=== PATIENT | male | born 1965 ===

== ENCOUNTER 2021-01-24 11:22 | Outpatient (CLI) | payer BC, SELFPAY ==
[2021-01-24 13:04] LABS: Abs Immature Grans 0.01 10^3/uL (0.0-0.06); Absolute Basophil Count 0.04 10^3/uL (0.0-0.2); Absolute Eosinophil Count 0.25 10^3/uL (0.0-0.7); Absolute Lymphocyte Count 2.87 10^3/uL (1.2-3.4); Absolute Monocyte Count 0.56 10^3/uL (0.1-0.8); Absolute Neutrophil Count 2.53 10^3/uL (1.2-6.7); Basophils % 0.6; HCT 40.9 % (40.0-50.0); HGB 12.2 g/dL (13.5-17.5); Immature Grans % 0.2; Lymphocytes % 45.8; MCH 21.8 pg (27.0-33.0); MCHC 29.8 % (32.0-36.0); MPV 9.4 fL (8.0-11.0); Monocytes % 8.9; Neutrophils % 40.5; Nucleated RBC 0 %; Platelet Count 331 10^3/uL (130-400); RDW 22.7 % (11.8-14.1); WBC 6.26 10^3/uL (4.4-10.8)
[2021-01-24 13:12] LABS: ALT 82 U/L (16-63); AST 34 U/L (15-37); Albumin 3.3 g/dL (3.4-5.0); Alkaline Phosphatase 136 U/L (46-116); Anion Gap 10.9 mmol/L (3-11); BUN 24 mg/dL (7-18); Bilirubin, Total 0.2 mg/dL (0.2-1.0); CO2 25.1 mmol/L (21.0-32.0); Calcium 9.7 mg/dL (8.5-10.1); Chloride 101 mmol/L (98-107); Glucose 109 mg/dL (74-106); Potassium 4.5 mmol/L (3.5-5.1); Sodium 137 mmol/L (136-145); Total Protein 8.5 g/dL (6.4-8.2)
[2021-01-24 13:27] LABS: Anisocytosis 3+; Diff Comment RBC Morph Reviewed
[2021-01-24 13:28] LABS: Hypochromasia 2+; Microcytosis 3+
[2021-01-24 13:29] LABS: Poikilocytes 2+
[2021-01-24 21:38] LABS: CEA <2.0 ng/mL (See Note)
[2021-01-31 08:32] LABS: DPYD Genotype See Comments; DPYD Phenotype Normal metabolizer
[2021-01-31 08:34] LABS: Interpretation See Comments
[2021-01-31 08:35] LABS: Method See Comments
[2021-01-31 08:47] LABS: Disclaimer See Comments
== END 2021-01-24 11:23 | disposition home or self-care (01) ==
LOC: LBO 01-27 11:23
PROVIDERS: Visit Provider Internal Medicine Hematology & Oncology
DX: C18.2 Malignant neoplasm of ascending colon (principal); C20 Malignant neoplasm of rectum
CPT/HCPCS: 36415; 80053; 81232; 82378; 85025

== ENCOUNTER 2021-02-21 09:42 | Outpatient (REF) | payer BC, SELFPAY ==
[2021-02-21 09:51] LABS: Abs Immature Grans 0.01 10^3/uL (0.0-0.06); Absolute Basophil Count 0.03 10^3/uL (0.0-0.2); Absolute Eosinophil Count 0.16 10^3/uL (0.0-0.7); Absolute Monocyte Count 0.73 10^3/uL (0.1-0.8); Absolute Neutrophil Count 2.15 10^3/uL (1.2-6.7); Basophils % 0.6; Eosinophils % 3.1; HCT 43.6 % (40.0-50.0); Immature Grans % 0.2; Lymphocytes % 39.4; MCH 21.9 pg (27.0-33.0); MCHC 29.8 % (32.0-36.0); MCV 73.4 fL (80-95); Monocytes % 14.4; Neutrophils % 42.3; Nucleated RBC 0 %; RBC 5.94 10^6/uL (4.36-5.78); RDW-SD 47.1 fL; WBC 5.08 10^3/uL (4.4-10.8)
[2021-02-21 10:02] LABS: ALT 28 U/L (16-63); AST 19 U/L (15-37); Albumin 3.6 g/dL (3.4-5.0); Alkaline Phosphatase 104 U/L (46-116); Anion Gap 10.1 mmol/L (3-11); BUN 14 mg/dL (7-18); Bilirubin, Total 0.4 mg/dL (0.2-1.0); CO2 22.9 mmol/L (21.0-32.0); CREATININE 0.9 mg/dL (0.70-1.30); Calcium 9.1 mg/dL (8.5-10.1); Chloride 100 mmol/L (98-107); Glucose 104 mg/dL (74-106); Potassium 4.6 mmol/L (3.5-5.1); Sodium 133 mmol/L (136-145)
[2021-02-21 10:11] LABS: Anisocytosis 1+; Diff Comment Diff Reviewed; Platelet Count 217 10^3/uL (130-400)
== END 2021-02-21 09:43 | disposition home or self-care (01) ==
LOC: LBN 09:42
PROVIDERS: Visit Provider Internal Medicine Hematology & Oncology
DX: C18.2 Malignant neoplasm of ascending colon (principal); C20 Malignant neoplasm of rectum
CPT/HCPCS: 80053; 82378; 85025

== ENCOUNTER 2021-03-14 02:03 | Outpatient (CLI) | payer BC, SELFPAY ==
[2021-03-14 09:07] LABS: Abs Immature Grans 0.02 10^3/uL (0.0-0.06); Absolute Basophil Count 0.04 10^3/uL (0.0-0.2); Absolute Eosinophil Count 0.13 10^3/uL (0.0-0.7); Absolute Lymphocyte Count 2.01 10^3/uL (1.2-3.4); Absolute Monocyte Count 0.96 10^3/uL (0.1-0.8); Absolute Neutrophil Count 3.48 10^3/uL (1.2-6.7); Basophils % 0.6; HCT 45.5 % (40.0-50.0); HGB 14.3 g/dL (13.5-17.5); Immature Grans % 0.3; Lymphocytes % 30.3; MCH 22.9 pg (27.0-33.0); MCHC 31.4 % (32.0-36.0); MCV 72.9 fL (80-95); MPV 8.6 fL (8.0-11.0); Monocytes % 14.5; Neutrophils % 52.3; Nucleated RBC 0 %; Platelet Count 207 10^3/uL (130-400); RBC 6.24 10^6/uL (4.36-5.78); RDW 20.2 % (11.8-14.1); WBC 6.64 10^3/uL (4.4-10.8)
[2021-03-14 09:24] LABS: ALT 25 U/L (16-63); AST 18 U/L (15-37); Albumin 3.9 g/dL (3.4-5.0); Alkaline Phosphatase 91 U/L (46-116); Anion Gap 2.6 mmol/L (3-11); BUN 22 mg/dL (7-18); Bilirubin, Total 0.5 mg/dL (0.2-1.0); CO2 39.4 mmol/L (21.0-32.0); CREATININE 1.4 mg/dL (0.70-1.30); Calcium 9.7 mg/dL (8.5-10.1); Chloride 89 mmol/L (98-107); Estimated GFR 52.81 (mL/min/1.73m2); Glucose 154 mg/dL (74-106); Sodium 131 mmol/L (136-145); Total Protein 8.3 g/dL (6.4-8.2)
[2021-03-14 09:29] LABS: Potassium 2.7 mmol/L (3.5-5.1)
[2021-03-14 22:12] LABS: CEA <2.0 ng/mL (See Note)
== END 2021-03-14 02:04 | disposition home or self-care (01) ==
LOC: LBO 02:03
PROVIDERS: Visit Provider Internal Medicine Hematology & Oncology
DX: C18.2 Malignant neoplasm of ascending colon (principal); C20 Malignant neoplasm of rectum
CPT/HCPCS: 36415; 80053; 82378; 85025

== ENCOUNTER 2021-04-04 01:20 | Outpatient (CLI) | payer BC, SELFPAY ==
[2021-04-04 09:03] LABS: Abs Immature Grans 0.01 10^3/uL (0.0-0.06); Absolute Basophil Count 0.05 10^3/uL (0.0-0.2); Absolute Eosinophil Count 0.25 10^3/uL (0.0-0.7); Absolute Lymphocyte Count 1.57 10^3/uL (1.2-3.4); Absolute Monocyte Count 0.81 10^3/uL (0.1-0.8); Absolute Neutrophil Count 2.49 10^3/uL (1.2-6.7); Eosinophils % 4.8; HCT 43.6 % (40.0-50.0); HGB 13.7 g/dL (13.5-17.5); Immature Grans % 0.2; Lymphocytes % 30.3; MCH 24.4 pg (27.0-33.0); MCHC 31.4 % (32.0-36.0); MCV 77.6 fL (80-95); MPV 8.8 fL (8.0-11.0); Monocytes % 15.6; Neutrophils % 48.1; Nucleated RBC 0 %; Platelet Count 195 10^3/uL (130-400); RBC 5.62 10^6/uL (4.36-5.78); RDW 25.4 % (11.8-14.1); RDW-SD 65.8 fL; WBC 5.18 10^3/uL (4.4-10.8)
[2021-04-04 09:22] LABS: Anisocytosis 2+; Diff Comment Diff Reviewed; Microcytosis 1+
[2021-04-04 09:23] LABS: ALT 50 U/L (16-63); AST 18 U/L (15-37); Alkaline Phosphatase 91 U/L (46-116); Anion Gap 8.7 mmol/L (3-11); BUN 20 mg/dL (7-18); Bilirubin, Total 0.9 mg/dL (0.2-1.0); CO2 34.3 mmol/L (21.0-32.0); CREATININE 1.2 mg/dL (0.70-1.30); Calcium 9.3 mg/dL (8.5-10.1); Chloride 93 mmol/L (98-107); Glucose 166 mg/dL (74-106); Sodium 136 mmol/L (136-145); Total Protein 7.9 g/dL (6.4-8.2)
[2021-04-04 09:30] LABS: Potassium 2.9 mmol/L (3.5-5.1)
[2021-04-04 17:54] LABS: CEA <2.0 ng/mL (See Note)
== END 2021-04-04 01:21 | disposition home or self-care (01) ==
LOC: LBO 01:21
PROVIDERS: Visit Provider Internal Medicine Hematology & Oncology
DX: C18.2 Malignant neoplasm of ascending colon (principal); C20 Malignant neoplasm of rectum
CPT/HCPCS: 36415; 80053; 82378; 85025

== ENCOUNTER 2021-04-11 09:33 | Outpatient (CLI) | payer BC, SELFPAY ==
--- OUTSIDE RECORDS SUMMARY | 2021-04-11 09:38 | XMS_ITS | Encounter Summary ---
:1965 Author Care Team Providers Name Role Phone Nikita Zimmerman Primary Care Provider [phone] Tressa Ramos MD Sales Merchandising Specialist [phone] James Chamberlain General Surgeon [phone] Reason for Visit hospital follow up Assessment and Plan 1. Hyponatremia Need to re-assess this - last sodium was 126. He was given a liter of NS after this. Blood pressure remains low, and pulse is high, raising possibility of ongoing dehydration. ? BMP, serum or plasma 2. Iron deficiency anemia Will have Richard check his bloo d in about two weeks. He's now had three iron infusions for a total of 0.9 gm. He will take an iron supplement for a couple of months, but the important thing is for him to get the bleeding stopped, and hopefully the colonoscopy/endoscopy shows only benign findings. Work note given - he'll return on 1. ? ferrous sulfate 325 mg (65 mg iron) tablet 3. Coronary arteriosclerosis [facility] 05/09/20. Cath showed diffu se disease. 80% prox diag with ELLA x 1 to diag 1. LCX distal 2 was 100% with collateralization. OM2 98% diffuse. LPL1- ostial 99%. RCA severe diffuse entire vessel. LVEF 39% by TTE. Follow-up echo showed an ejection fracti on of 55%. Perfusion scan was discordant with an ejection fraction of 39% identified. He has established with cardiology local ly. No symptoms attributable to this disease currently. 4. Familial multiple polyposis s yndrome Richard has had his colon remove d and now has an ostomy. Unfortunately, his condition had advanced and he will need to undergo chemotherapy and radiation therapy. Discussion Note: None recorded.Patient educational handouts: No information available. Plan of Care Reminders Provider Appointments Or 15 on or around James brooke 04/22/2021 MD [facility] ? Surgical 05/08/2021 Or Room 4 Procedure 60 12:00PM ? Surgical 05/08/2021 James Martin njamin Procedure 60 12:00PM MD [facility] ? Or 15 05/08/2021 James Pandey min 11:00AM MD [facility] ? Follow up 06/03/2021 Tressa raphael 20 8:20AM MD Richard ? Follow up 06/26/2021 Nikita Zimmerman, 20 10:00AM DO Lab BMP, Serum 01/17/2021 [facility] or [facility] Hospital Lab (Internal) Referral None ? ? recorded. Procedures None ? ? recorded. Surgeries None ? ? recorded. Imaging None ? ? recorded. Medications Name Start Date ? ? aspirin 81 mg tablet,delayed release 01/06/2021 1 tablet every day by oral route in the evening. atorvastatin 80 mg tablet 01/06/2021 1 tablet every day by oral route in the evening. ferrous sulfate 325 mg (65 mg iron) tablet ? Take 1 tablet by oral route as directed. loperamide 2 mg capsule 01/06/2021 Take 2 mg 3 times a day by oral route as needed for 3 0 days. Take as needed like we have discussed. If you don't n eed it, don't take it. metoprolol succinate ER 50 mg tablet,extended release 24 hr 01/06/2021 1 tablet every day by oral route in the evening. nitroglycerin 0.4 mg sublingual tablet 01/06/2021 Place 1 tablet by sublingual route as needed. omeprazole 20 mg capsule,delayed release ? TAKE 1 CAPSULE BY MOUTH TWICE DAILY potassium chloride ER 20 mEq tablet,extended release 0 03/16/2021 Take 2 tablets every day by oral route for 7 days. Prescription - New ? Medications Administered None recorded. Vitals Height Weight BMI Blood Pressure 5 ft 7 in 157 lbs 1.6 oz 24.6 kg/m2 96/62 mm[Hg] Results Lab Results Date Name Specimen Result Interpretation Description Value Range Status Address ? 01/17/2021 BMP, Serum S ? g/r 106 74-106 Final No [facility]th [place] or Plasma mg/dL mg/dL [facility]osp[facility] Lab (Internal) : [address] ? ? S High Bun 21 mg/dL 9-20 Final [facility] mg/dL Hospital L ab (Internal) : [address] ? ? S ? Crea 0.70 0.66-1.25 [place] mg/[place] mg/dL Hospital [facility] (Internal) : [address] ? ? S ? Ca 9.9 8.4-10.2 [place] mg/dL mg/dL Hospital [facility] (Internal) : [address] ? ? S ? Na 138 137-145 Final [place] mmol/L mmol/L Hospital [facility] (Internal) : [address] ? ? S ? K 4.0 3.5-5.1 [place] mmol/L mmol/L Hospital [facility] (Internal) : [address] ? ? S ? Cl 99 98-107 Final [place] mmol/L mmol/L Hospital [facility] (Internal) : [address] ? ? S ? Tco2 30.0 22.0-30.0 Final [place] mmol/L mmol/L Hospital L ab (Internal) : [address] Allergies Code Code System Name Reaction Severity Onset NKDA ? ? ? Notes: No seafood allergy. No kn own contrast allergy. Problems Name Status Onset Date Source ? Coronary Arteriosclerosis Active 05/22/2020 ? Nicotine Dependence Active 05/24/2020 ? Malignant Tumor of Colon Active 12/26/2020 ? Hyperlipidemia Active ? ? Hypertensive Disorder Active ? ? Myocardial Infarction Active ? ? Procedures Date Name Performed by ? 01/02/2021 Revision of Ileostomy Information not av ailable Notes: Partial small bowel obstructio n 12/26/2020 Colectomy, Partial (Surg) Information no t available 12/26/2020 Colectomy, Partial (Surg) Information no t available Notes: synchronous colectomy with ile oproctostomy 12/04/2020 Egd Information not avai lable Notes: gastric ulcers 12/04/2020 Colonoscopy Information not avai lable Notes: synchronous colon cancer, poly posis syndrome of the colon 12/04/2020 Upper Endoscopy (Egd) with Colonoscopy I nformation not available (Surg) 12/04/2020 Upper Endoscopy (Egd) with Colonoscopy I nformation not available (Surg) 04/18/2020 Placement of Stent Information not avai lable Vaccine List Vaccine Type COVID-19 vaccine, vector-nr, rS-Ad26, PF , 0.5 mL 09/24/2020 influenza, seasonal, injectable, preserv ative free 05/12/2020 Social History Tobacco Smoking Status Former Smoker (1 pack per a Notes: 01/05/2021 1/4 day) [id number] stopped s moking What is the highest grade or [id number] level of school you have completed or the highest degree you have received? Are you currently employed? Y Notes: at [employer] y Have you used IV drugs? N Are you blind or do you have N Notes: u ses corrective difficulty seeing? lenses Do you have smoke and carbon Y monoxide detectors in your home? What is your code status? 0 What was the date of your 02/24/2021 most recent tobacco screening? Do you or have you ever used Never used electronic e-cigarettes or vape? cigarettes Do you have an advanced N Notes: has pa cket at home directive? needs to fill out an d [facility] Do you feel safe at home? Y How many years have you 35 Notes: 30+ pe r pt packet smoked tobacco? What is your exercise level? Occasional Notes: A DL's, stairs, housework, yardwork What is your level of alcohol Occasional Notes: whiskey 1 time per consumption? week Live alone or with others? with others Which of your hands is Right dominant? Do you have any pets? Y Notes: 1 dog Do you or have you ever used Never used smokeless smokeless tobacco? tobacco Have you been to an area N known to be high risk for COVID-19? Language Difficulties No Notes: speaks E nglish What is your current pack 30ormorepackyears years? Are you deaf or do you have N serious difficulty hearing? Hard of hearing or deaf in N one or both ears? What is your level of Heavy Notes: previous ly 4-6 cups caffeine consumption? of coffee per day 11/25/2020: has decreased to 1 c up daily Have you recently traveled N abroad? What is your occupation? [employer] Have you fallen in the last 3 N months? Functional Status No Impairment. Past Encounters 01/17/2021 Hyponatremia; Iron Deficiency Anemia; Co ronary Arteriosclerosis; Familial Multiple Polyposis Syndrome Nikita Zimmerman, DO: [address] [facility] [place] [address], Ph. 01/14/2021 James Chamberlain MD: [address] [place] [address], Ph. History of Present Illness Note: <p>[facility]21 to continue recovery from a subtotal colectomy and loop ileostomy. He had revision surgery before he left. Reports ileostomy seems to be workingwell at this time. </p><p>
</p><p>He notes that things have not been bad since he has returned and he and his are making adjustments. </p><p>
</p><p>He is eventually going to have the ostomy taken down.</p><p>
</p><p>He will undergo chemo and radiation therapy in [facility].</p><p>&lt ;br></p><p>He has lost weight - almost 30 lbs. </p><p>
</p><p>He is out of work - FMLA is done, and he is on medical leave. He will likely need to be on disability until his chemotherapy is done, and his ostomy is taken down. 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 </p><p>
</p><p>This leaves him in a difficult place financially until he can get back to work. He thought he had disability insurance through work, but does not. </p> Review of Systems ? Notes: <p>Denies chest pain, shortn ess of breath, dizziness, palpitations, headaches, or new peripheral edema.</p> Physical Exam ? Notes: <p>General: Alert and orient ed man who appears stated age in no acute distress; full command of co gnitive faculties
HEENT: Normocephalic; normal facial movements; extraocula r muscle movements apparently normal
Cardiovascular: S1 -S2; no noted murmurs, rubs or gallops
Pulmonary: Good a ir movement bilaterally with no wheezes, rales or rhonchi
</p><p>Abd: right lower quadrant ostomy in place
Skin: Warm and dry; no rashes
Neurologic al: Normal gait; rises from seated to standing position easily; cranial ner ves 3, 4, 6, 7, 8, 11, and 12 within normal limits
Musculoskeletal: N o edema; no obvious arthropathy
Psych: Alert and interactive; euthymic</p >
--- OUTSIDE RECORDS SUMMARY | 2021-04-11 09:38 | XMS_ITS | Encounter Summary ---
:1965 Author Care Team Providers Name Role Phone Nikita Zimmerman Primary Care Provider [phone] Tressa Ramos MD Disease And Insect Control Boss [phone] James Chamberlain General Surgeon [phone] Reason for Visit Post-op follow-up Assessment and Plan Assessment Note 55-year-old man postop a couple wee ks from laparoscopic total abdominal colectomy, partial proctectomy with pouch ileoproctostomy and a diverting loop ileostomy done for bleeding synchronous colore ctal tumors in the setting of biallelic MUTYH-associated polyposis syndrome. He is having good ileostomy function. Hi s hydration status is adequate. At this point the next step is medical a nd radiation oncology referral for adjuvant therapy discussion. I have discussed with the patient about his genetic testing, namely positive for biallelic MUTYH mutations and that his children definitely need to be referred for genetic testing in my opinion and will likely need early colonoscopy screenings. He is spigelian classification grade 0 s alejandro there were no polyps on upper endoscopy and should have a repeat upper endoscopy surveillance in 4 years. A screening thyroid ultrasound should be considered since he is at higher risk for thyroid malignancy. A heightened awareness for risk of cutan eous/skin cancers needs to be considered as well. Overall, I will let him have his oncolog y discussions and come up with adjuvant therapy plans as well as surveillance plans with them and we will adjust and assist accordingly as needed. If he decides t o go ahead with chemotherapy, I am happy to provide him a Mediport placement but I have been very clear with him that his ileostomy reversal will need to wait until after adjuvant chemotherapy is completed. PLAN: I will see him back in 3 weeks aft er he has met with radiation and medical oncology to discuss those plans and adjust our planning accordingly. He knows to call me if he otherwise feel s dehydrated or is having lower urine output or feeling very weak. As of now it seems like he has a good handle on his ileostomy control. 45 minutes spent on this followup nabil henry. Discussion Note: None recorded.Patient educational handouts: No [...] 06/26/2021 Nikita Zimmerman, 20 10:00AM DO Lab None ? ? recorded. Referral None ? ? recorded. Procedures None [...] BMI Blood Pressure 5 ft 7 in 182 lbs 16 oz 28.7 kg/m2 130/72 mm[Hg] Results Lab Results None recorded. Allergies Code Code System Name Reaction Severity [...] pack per a Notes: 01/05/2021 1/4 day) [id number] stopped s moking What is the highest grade or [id number] level of school you have completed or the highest degree you have received? Are you currently employed? Y Notes: at [employer] y Have you used IV drugs? N [...] to fill out an d bring to [facility] Do you feel safe at home? Y How many years have you 35 Notes: 30+ pe r pt packet smoked tobacco? What is your exercise level? Occasional Notes: A DL's, stairs, housework, yardwork What is your level of alcohol Occasional Notes: whiskey 1 time per consumption? week Which of your hands is Right dominant? Live alone or with others? with others Do you have any pets? Y Notes: [...] months? Functional Status No Impairment. Past Encounters 01/14/2021 James Chamberlain MD: [address] [place] [address], Ph. 12/17/2020 Pre-surgery Testing James Chamberlain MD: [address] [place] [phone], Ph. History of Present Illness Note: <p>Richard is doing well since being discharged.</p><p>
</p><p>Recap: He was kept in the hospital a number of extra days. First, because he was having a partial obstruction at the fascia from his loop ileostomy which required operative revision and after whichhis loop ileostomy had no issues functioning. Secondly, because once the ostomy started functioning appropriately, it was high output warranting fluid management and electrolyte monitoring.</p>&lt ;p>
</p><p>He was finally discharged once the output was under control.</p><p>
</p><p>He was assessed, routinely, for lab work and hydration status 3 days later and given an IV bolus of normal saline in the outpatient setting. Since then he has been focusing on eating certain ways, high salt intake and maintaining his fluid status and feels more energetic and better about everything.</p><p>
</p><p>We again wentover pathology results and next steps.</p><p>
</p><p>We talked about surgical reversal of the ileostomy and how that plays a role in adjuvant chemotherapy which is certainly going to be recommended by all parties.</p><p>
</p><p>He wantsto have his ileostomy reversed and then once he is all healed up start chemotherapy but I explained to him that chemotherapy is recommended to be started before 8 weeks have gone by. If we reverse his ileostomy now, those 8 weeks will come too soon in the healing process.
</p><p>
</p>Review of Systems: ROS as noted in the HPI Review of Systems None recorded. Physical Exam ? Notes: <p>General: Nontoxic and com fortable

Neuro: Alert and oriented x3

Psych: Appropri ate mood and affect, good insight and understanding into condition
</p><p>
</p><p>Head: Mucous membranes are moist
</p><p>
< /p><p>Abdomen: Soft, nondistended and nontender. His incision sites have heal ed perfectly. I removed the ramone at the bedside. There is no erythem a or induration of the wounds. Right lower quadrant ileostomy site with out complication or issue.
</p>
--- OUTSIDE RECORDS SUMMARY | 2021-04-11 09:38 | XMS_ITS | Encounter Summary ---
:1965 Author Care Team Providers Name Role Phone Nikita Zimmerman DO Primary Care Provider [phone] Tressa Ramos MD Community Resource Officer [phone] James Chamberlain General Surgeon [phone] Reason for Visit hyperlipidemia; Follow Up Medication staci nges; CAD - Coronary Artery Disease; HTN-Hypertension Assessment and Plan 1. Coronary arteriosclerosis The patient is stable at prese nt from the cardiac standpoint. His last nuclear stress test showed no significant ischemia, EF had improved to within the range of normal. His current symptoms are most likely rel ated to his recent surgical procedure and diagnosis of colon cancer No cardiac changes were advised today We will plan follow-up in approximately 4 months 2. Malignant tumor of colon The patient has seen Dr. Isabella leon at [facility] and chemotherapy is planned. Discussion Note: None recorded.Patient educational handouts: No information available. Plan of Care Reminders Provider Appointments Or 15 on or around James brooke 04/22/2021 MD [facility] ? Surgical 05/08/2021 Or Room 4 Procedure 60 12:00PM ? Surgical 05/08/2021 James alanis Procedure 60 12:00PM MD [facility] ? Or [...] BMI Blood Pressure 5 ft 7 in 71.65 kg 24.7 kg/m2 98/65 mm[Hg] Results Lab Results None recorded. Allergies [...] pack per a Notes: 01/05/2021 1/4 day) [id number] stopped s moking What is the highest grade or [id number] level of school you have completed or the highest degree you have received? Are you currently employed? Y Notes: at [facility] y Have you used IV drugs? N [...] to fill out an d bring to [facility] Do you feel safe at home? [...] months? Functional Status No Impairment. Past Encounters 02/04/2021 Jamse Chamberlain MD: [address] [employer] [place] [address], Ph. 02/04/2021 Coronary Arteriosclerosis; Malignant Fidel or of Colon DiandraRosalee Ramos MD: [address] [place] [address], Ph. 01/17/2021 Hyponatremia; Iron Deficiency Anemia; Co ronary Arteriosclerosis; Familial Multiple Polyposis Syndrome Nikita Zimmerman, DO: [address] [place] [address], Ph. 01/14/2021 James Chamberlain MD: [address], [place] [address], Ph. History of Present Illness Note: <p>This 55-year-old man presents for cardiac follow-up. After his last visit he had further evaluation regarding his anemia. He was unfortunately found to have colon cancer, as well as rectal cancer. He has had surgery. He has an ileostomy. He has been seen by oncology, most recently on January 24. It is anticipated that he will have chemotherapy for further treatment
</p><p>The patient reports limited exercise tolerance due to the fact that he generally feels unwell and deconditioned. He lost a lot of weight around the time of his abdominal surgery. He reports that he is eating, no longer having abdominal pain but has not gained any weight
</p><p>He is not really short of breath. He will get lightheaded if he changes position too quickly
</p><p>He is not currently working and has applied for disability
</p><p >He does not describe any exertional chest discomfort
</p><p>He expresses concerns regarding possible side effects of the chemotherapy
</p> Review of Systems ? Brief Cardiology ROS Reported By: Patient Cardio Basic: Cardiovascular Symptoms: no chest pressure, no chest pain, no dyspnea on exertion, no leg edema, n o palpitations, no shortness of breath, lightheadedness, fatigue Constitutional: Constitutional: weight loss ( lbs), exercise intolerance Physical Exam ? Cardiology Exam Reported By: Patient Constitutional: General Appearance: ; Pale t hin chronically ill-appearing no acute distress Neck: Neck: ; Neck is supple there is no neck vein distention carotid pulsations are normal I hear no bruits Lungs: Auscultation: clear Cardiovascular: Precordial Exam: non palpabl e. Rate And Rhythm: regular. Heart Sounds: normal S1, physiolog ically split S2; No murmur or gallop. Extremities: no edema Abdomen: Inspection and Palpation: ; Not examined Skin: Inspection and Palpation: ; Pale
--- OUTSIDE RECORDS SUMMARY | 2021-04-11 09:38 | XMS_ITS | Encounter Summary ---
:1965 Author Care Team Providers Name Role Phone Nikita Zimmerman Primary Care Provider [phone] Tressa Ramos MD Vice Chairman [phone] James Chamberlain General Surgeon [phone] Reason for Visit Post-op follow-up Assessment and Plan Assessment Note 55-year-old man postop from laparos copic total abdominal colectomy and partial proctectomy with low ileoproctostomy and a diverting loop ileostomy because of MUTYH polyposis syndrome that had recta l sparing from a polyp standpoint but he was found to have synchronous cecum and rectal tumors on presentation. 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 T3 rectal tumor with negative lymph nodes and clear radial margins. Overall I agree with adjuvant chemothera py because of the satellite tumor found near the cecum tumor. Overall I also agree that adjuvant radia tion therapy is probably overkill in the setting of a clear radial margin of 3.2 cm, all lymph nodes negative and a clear distal margin, measured on the gross spe cimen at time of surgery of 6-[address] suggested the tumor was above the peritoneal reflection. At time of surgery, intraoperatively the tumor was found to be at the level of the peritoneal reflection. Final pathology suggests th at the tumor is beneath the peritoneal reflection. Considering all of this data together, I agree that the risks of adjuvant radiation therapy outweigh any theore tical benefit in the setting of the adeq uate oncologic resection. With regards to the oncologic resection, I have been straightforward with Richard about the tumor board discussion and that at least 1 expert opinion feels that the remaining rectum should be removed from a cancer standpoint. I have offered to refer him to that particular surgeon for further discussion and a formal consultation if he wishes. My personal and formal recommendation is that the oncologic resection that I provided is standard of care. Close surveillance of the rectum is an appropriate management strategy because the rectum was s pared of polyps. We had this discussion preoperatively and the patient was given the option to have all of his rectum removed as the most safe operation however from a function standpoint he was also given the option to preserve some of his rectum in order to have a better functional outcome but he clear ly understood that close surveillance of the rectum was going to be necessary and that there is a risk, in the future, that the remaining rectum may need to be re moved because it may develop cancerous l esions(the reason for close surveillance). He wished to have some of his rectum left in place with close surveillance. I recommend against revision surgery and recommend against removing the remaining rectum at this time. Not only would this be very risky from a surgical perspective, but it would also delay his adjuvant chemotherapy which is the most importan t next step. Further, it is simply unnecessary from an academic management strategy and it was an issue that we discussed and decided against before his surgery. Richard reports he is happy with the surge ry he received and at this time he does not have any interest to have consultation with the specific colorectal surgeon who feels that revision surgery is indicated. Overall plan: Surveillance of the rectum - first flexible sigmoidoscopy in 3 months Loop ileostomy reversal after completion of adjuvant chemotherapy 40 minutes spent on this follow-up visit and discussion. Discussion Note: None recorded.Patient educational handouts: No [...] Administered None recorded. Vitals Height Weight BMI 5 ft 7 in 156 lbs 16 oz 24.6 kg/m2 Results Lab Results None recorded. Allergies Code [...] pack per a Notes: 01/05/2021 1/4 day) [id number] stopped s moking What is the highest grade or [id number] level of school you have completed or the highest degree you have received? Are you currently employed? Y Notes: at [employer] y Have you used IV drugs? [...] to fill out an d bring to [facility] Do you feel safe at home? Y [...] Functional Status No Impairment. Past Encounters 02/04/2021 James Chamberlain MD: [address] [place] [address], Ph. 02/04/2021 Coronary Arteriosclerosis; Malignant Fidel or of Colon Tressa Ramos MD: [address] [place] [address], Ph. 01/17/2021 Hyponatremia; Iron Deficiency Anemia; Co ronary Arteriosclerosis; Familial Multiple Polyposis Syndrome Nikita Zimmerman DO: [address] [facility] [place] [address], Ph. 01/14/2021 James Chamberlain MD: [address] [place] [address], Ph. History of Present Illness Note: Patient comes in for repeat follow-up and discussion following oncology referrals and consultati on.<div>
</div><div>Ileostomy functioning nicely and without issue.<br& gt;</div><div>
</div><div>Patient maintaining good hydration.<br& gt;</div><div>
</div><div>Radiation oncology referral canceled after tumor board discussion agreed radiation unnecessary in this particular case. Namely, high rectal/rectosigmoid junction tumor with no positive lymph nodes and gross pathology specimen 3.2 cm radial margin and distal gross surgical margin was measured as 6-7 cm prior to placing specimen in formalin. Final pathology distal margin 2.9 cm.</div><div>
</div><div>Adjuvant chemotherapy recommended by medical oncology because of the N1 C status from the satellite lesion in the mesocolon near the cecum tumor.
</div><div>
</div><div>Current plans are combination of oral chemotherapy and infusion of oxaliplatin which will be attemptedby regular IV.
</div><div>
</div><div>Also part of tumor board was the expert opinion of 1 of the colorectal surgeons participating who felt that a surgical revision, completion proctectomy is indicated rather than close surveillance of the rectum.
&lt ;/div><div>
</div><div>Both the medical oncologist as well as myself have passed on these tumor board opinions and recommendations to the patient.
</div><div>
</div>Review of Systems: ROS as noted in the HPI Review of Systems None recorded. Physical Exam ? Notes: General: Nontoxic and comfor table. Good color and an overall improvement in both color and energy level.

Neuro: Alert and oriented x3

Psych: Appropriate mood and affect, good insight and understanding into condition.
--- OUTSIDE RECORDS SUMMARY | 2021-04-11 09:38 | XMS_ITS ---
:1965 Author Care Team Providers Name Role Phone NIKITA VILLASENOR Primary Care Provider [phone] TRESSA RAMOS MD Patient Financial Services Manager [phone] ZURI JOSHUA General Surgeon [phone] Allergies Code Code System Name Reaction Severity Status Onset NKDA ? Notes: No seafood allergy. No kn own contrast allergy. Medications Name Status Start Date Stop Date ? ? acetaminophen 325 mg capsule Completed ? Take 2 capsules as needed by oral route. aspirin 81 mg tablet,delayed release Active 01/06/2021 Not available 1 tablet every day by oral route in the evening. atorvastatin 80 mg tablet Active 01/06/2021 Not av ailable 1 tablet every day by oral route in the evening. clopidogrel 75 mg tablet Completed ? 021 TAKE 1 TABLET BY MOUTH DAILY diphenhydramine 25 mg capsule Completed ? Take 1 capsule as needed by oral route. diphenhydramine 50 mg/mL injection syringe Completed ? 12/17/2020 Take 0.5 mL as needed by injection route. Dulcolax (bisacodyl) 5 mg tablet,delayed release Completed ? 01/06/2021 take 2 tabs at 8 am and 7 pm with 8 oz of clear liquids. pt instructed to purchase over the counter Ensure High Protein oral liquid Completed ? 01/06/2021 Take 237 mL 3 times a day by oral route with meals for 30 days. erythromycin 500 mg tablet Completed ? 01/06 Take 2 Tablets at 1 pm, 2 pm, and at Bedtime the day before silvano thierry ferrous sulfate 325 mg (65 mg iron) tablet Active ? Not available Take 1 tablet by oral route as directed. furosemide 40 mg tablet Completed ? 01/07/20 21 Take 1 tablet every day by oral route. lisinopril 2.5 mg tablet Completed ? 021 TAKE 1 TABLET BY MOUTH DAILY loperamide 2 mg capsule Active 01/06/2021 Not avai lable Take 2 mg 3 times a day by oral route as needed for 30 days. Take as needed like we have discussed. If you don't need it, do n't take it. metoprolol succinate ER 50 mg tablet,extended release 24 hr Acti ve 01/06/2021 Not available 1 tablet every day by oral route in the evening. Miralax 17 gram/dose oral powder Completed ? 01/06/2021 Mix 238 gm with 64 oz of clear non-carb onated liquid. At 10 am drink 8 oz every 20 mins until the solution is gone. pt instructed to purchase over the counter neomycin 500 mg tablet Completed ? 1 Take 2 Tablets at 1 pm, 2 pm, and at Bedtime the day before silvano thierry nicotine (polacrilex) 4 mg gum Completed ? 0 01/06/2021 nicotine 21 mg/24 hr daily Completed ? 01/06 transdermal patch nitroglycerin 0.4 mg sublingual tablet Active [address] 1 tablet by sublingual route as needed. omeprazole 20 mg capsule,delayed release Active ? Not available TAKE 1 CAPSULE BY MOUTH TWICE DAILY omeprazole 20 mg tablet,delayed release Completed ? 12/17/2020 Take 1 tablet twice a day by oral route. potassium chloride ER 20 mEq tablet,extended release Active 03/16/2021 Not available Take 2 tablets every day by oral route for 7 days. Problems Name Status Onset Date Source ? [...] Placement of Stent Information not avai lable 06/18/2020 US, Echocardiogram [facility] [address] [place], [place] [id number] (Work Place) 07/29/2020 NM, Myocardial Perfusion Scan, W/ [facility] Radiology (Internal) Stress [address] [place] [address] (Work Place) 12/09/2020 CT, Chest + Abdomen + Pelvis, W/ [facility] Radiology (Internal) Contrast [address] [place] [address] (Work Place) Results Lab Results Date Name Specimen Result Interpretation Description Value Range Status Address ? 01/17/2021 BMP, Serum or S ? g/r 106 mg/dL 74-106 Fin al [place] Plasma mg/dL [facility] : [address] ? ? S High Bun 21 mg/dL 9-20 Final North mg/dL [facility] ([facility] : [address] t ? ? S ? Crea 0.70 mg/dL 0.66-1.25 Final Nor th mg/dL [facility] (Internal[facility] : [address] t ? ? S ? Ca 9.9 mg/dL 8.4-10.2 Final North mg/dL [facility] ([facility] : [address] t ? ? S ? Na 138 mmol/L 137-145 Final North mmol/L [facility] (Internal) : [address] t ? ? S ? K 4.0 mmol/L 3.5-5.1 Final [place] mmol/L [facility] ([facility] : [address] t ? ? S ? Cl 99 mmol/L 98-107 Final North mmol/L [facility] (Internal) : [address] t ? ? S ? Tco2 30.0 mmol/L 22.0-30.0 Final No rth mmol/L [facility] (Internal) : [address] 01/08/2021 Cbc BLD High Wbc 18.7 5.0-10.0 Final Nort h 10*3/uL 10*3/uL [facility] (Internal) : [address] t ? ? BLD ? Rbc 5.96 4.60-6.00 Final [facility] 10*6/uL 10*6/uL [facility] (Internal) : [address] t ? ? BLD Low Hgb 12.7 g/dL 14.0-18.0 Final Nort h g/dL [facility] (Internal) : [address] ? ? BLD ? Hct 42.2 % 41.0-51.0 Final [facility] (Internal) : [address] ? ? BLD Low Mcv 70.8 fL 80.0-96.0 Final [facility] (Internal) : [address] ? ? BLD Low Mch 21.3 pg 26.0-32.0 Final [facility] (Internal) : [address] t ? ? BLD Low Mchc 30.1 g/dL 31.0-35.0 Final Nort h g/dL [facility] (Internal) : [address] t ? ? BLD High Rdw 25.4 % 11.5-14.5 Final [facility] (Internal) : [address] ? ? BLD High Plt 711 10*3/uL 130-450 Final Nort h 10*3/uL [facility] (Internal) : [address] ? ? BLD ? Anc 14.87 ? Final [facility] 10*3/uL [facility] (Internal) : [address] 01/08/2021 Ferritin, S ? Ferr 43 NG/mL 18-464 Final N orth Serum or NG/mL [facility] (Internal) : [address] 01/08/2021 BMP, Serum or S High g/r 160 mg/dL 74-106 Fin al North Plasma mg/dL [facility] (Internal) : [address] t ? ? S High Bun 31 mg/dL 9-20 Final North mg/dL [facility] ([facility] : [address] ? ? S ? Crea 1.10 mg/dL 0.66-1.25 Final Nor th mg/dL [facility] (Internal[facility] : [address] t ? ? S ? Ca 9.2 mg/dL 8.4-10.2 Final North mg/dL [facility] (Internal) : [address] t ? ? S Low Na 126 mmol/L 137-145 Final [place] mmol/L [facility] (Internal) : [address] ? ? S ? K 4.2 mmol/L 3.5-5.1 Final [place] mmol/L [facility] (Internal[facility] : [address] ? ? S Low Cl 87 mmol/L 98-107 Final [place] mmol/L [facility] (Internal) : [address] ? ? S ? Tco2 26.0 mmol/L 22.0-30.0 Final No rth mmol/L [facility] (Internal) : [address] t 01/06/2021 BMP, Serum or S High g/r 114 mg/dL 74-106 Fin al [place] Plasma mg/dL [facility] (Internal[facility] : [address] ? ? S High Bun 28 mg/dL 9-20 Final North mg/dL [facility] (Internal[facility] : [address] t ? ? S ? Crea 0.70 mg/dL 0.66-1.25 Final Nor th mg/dL [facility] (Internal) : [address] t ? ? S ? Ca 8.8 mg/dL 8.4-10.2 Final North mg/dL [facility] (Internal) : [address] ? ? S Low Na 129 mmol/L 137-145 Final [place] mmol/L [facility] (Internal) : [address] ? ? S ? K 3.7 mmol/L 3.5-5.1 Final [place] mmol/L [facility] (Internal) : [address] ? ? S Low Cl 91 mmol/L 98-107 Final [place] mmol/L [facility] (Internal) : [address] ? ? S ? Tco2 28.0 mmol/L 22.0-30.0 Final No rth mmol/L [facility] (Internal) : [address] 01/05/2021 BMP, Serum or S High g/r 125 mg/dL 74-106 Fin al [place] Plasma mg/dL [facility] (Internal[facility] : [address] ? ? S High Bun 36 mg/dL 9-20 Final North mg/dL [facility] (Internal[facility] : [address] ? ? S ? Crea 0.90 mg/dL 0.66-1.25 Final Nor th mg/dL [facility] (Internal) : [address] ? ? S ? Ca 9.0 mg/dL 8.4-10.2 Final North mg/dL [facility] (Internal[facility] : [address] ? ? S Low Na 129 mmol/L 137-145 Final [place] mmol/L [facility] (Internal) : [address] ? ? S ? K 3.5 mmol/L 3.5-5.1 Final [facility] mmol/L [facility] (Internal[facility] : [address] ? ? S Low Cl 89 mmol/L 98-107 Final [place] mmol/L [facility] (Internal) : [address] ? ? S ? Tco2 30.0 mmol/L 22.0-30.0 Final No rth mmol/L [facility] (Internal) : [address] 01/04/2021 BMP, Serum or S High g/r 135 mg/dL 74-106 Fin al [place] Plasma mg/dL [facility] (Internal[facility] : [address] ? ? S High Bun 36 mg/dL 9-20 Final North mg/dL [facility] (Internal) : [address] ? ? S ? Crea 1.10 mg/dL 0.66-1.25 Final Nor th mg/dL [facility] (Internal) : [address] ? ? S ? Ca 9.6 mg/dL 8.4-10.2 Final North mg/dL [facility] (Internal) : [address] ? ? S Low Na 134 mmol/L 137-145 Final [place] mmol/L [facility] (Internal) : [address] ? ? S ? K 3.8 mmol/L 3.5-5.1 Final [place] mmol/L [facility] (Internal) : [address] ? ? S Low Cl 92 mmol/L 98-107 Final [place] mmol/L [facility] (Internal) : [address] ? ? S ? Tco2 29.0 mmol/L 22.0-30.0 Final No rth mmol/L [facility] (Internal) : [address] t 01/03/2021 BMP, Serum or S High g/r 136 mg/dL 74-106 Fin al [place] Plasma mg/dL [facility] (Internal) : [address] ? ? S High Bun 27 mg/dL 9-20 Final [place] mg/dL [facility] (Internal) : [address] ? ? S ? Crea 0.90 mg/dL 0.66-1.25 Final Nor th mg/dL [facility] (Internal) : [address] ? ? S ? Ca 9.3 mg/dL 8.4-10.2 Final North mg/dL [facility] (Internal[facility] : [address] ? ? S ? Na 137 mmol/L 137-145 Final [place] mmol/L [facility] (Internal) : [address] ? ? S ? K 4.0 mmol/L 3.5-5.1 Final [place] mmol/L [facility] (Internal) : [address] ? ? S ? Cl 98 mmol/L 98-107 Final [place] mmol/L [facility] (Internal) : [address] ? ? S ? Tco2 28.0 mmol/L 22.0-30.0 Final No rth mmol/L [facility] (Internal) : [address] 01/02/2021 BMP, Serum or S High g/r 142 mg/dL 74-106 Fin al [place] Plasma mg/dL [facility] (Internal) : [address] ? ? S High Bun 38 mg/dL 9-20 Final North mg/dL [facility] (Internal) : [address] ? ? S High Crea 1.40 mg/dL 0.66-1.25 Final Nor th mg/dL [facility] (Internal) : [address] ? ? S ? Ca 10.0 mg/dL 8.4-10.2 Final Nort h mg/dL [facility] (Internal) : [address] ? ? S ? Na 137 mmol/L 137-145 Final North mmol/L [facility] (Internal) : [address] ? ? S ? K 4.1 mmol/L 3.5-5.1 Final North mmol/L [facility] (Internal) : [address] ? ? S Low Cl 96 mmol/L 98-107 Final [place] mmol/L [facility] (Internal) : [address] ? ? S ? Tco2 23.0 mmol/L 22.0-30.0 Final No rth mmol/L [facility] (Internal) : [address] 01/01/2021 BMP, Serum or S High g/r 126 mg/dL 74-106 Fin al North Plasma mg/dL [facility] (Internal) : [address] ? ? S High Bun 21 mg/dL 9-20 Final North mg/dL [facility] (Internal) : [address] ? ? S ? Crea 0.90 mg/dL 0.66-1.25 Final Nor th mg/dL [facility] (Internal) : [address] ? ? S ? Ca 9.8 mg/dL 8.4-10.2 Final North mg/dL [facility] (Internal) : [address] ? ? S Low Na 136 mmol/L 137-145 Final [place] mmol/L [facility] (Internal) : [address] ? ? S ? K 4.0 mmol/L 3.5-5.1 Final [facility] mmol/L [facility] (Internal) : [address] ? ? S ? Cl 106 mmol/L 98-107 Final [place] mmol/L [facility] (Internal) : [address] ? ? S ? Tco2 23.0 mmol/L 22.0-30.0 Final No rth mmol/L [facility] (Internal) : [address] 12/31/2020 BMP, Serum or S High g/r 108 mg/dL 74-106 Fin al North Plasma mg/dL [facility] (Internal) : [address] ? ? S ? Bun 9 mg/dL 9-20 Final North mg/dL [facility] (Internal) : [address] ? ? S ? Crea 0.70 mg/dL 0.66-1.25 Final Nor th mg/dL [facility] (Internal) : [address] ? ? S ? Ca 9.2 mg/dL 8.4-10.2 Final North mg/dL [facility] (Internal) : [address] ? ? S Low Na 135 mmol/L 137-145 Final [place] mmol/L [facility] (Internal) : [address] ? ? S ? K 3.7 mmol/L 3.5-5.1 Final [facility] mmol/L [facility] (Internal) : [address] ? ? S High Cl 109 mmol/L 98-107 Final [place] mmol/L [facility] (Internal) : [address] ? ? S ? Tco2 25.0 mmol/L 22.0-30.0 Final No rth mmol/L [facility] (Internal) : [address] 2020 BMP, Serum or S High g/r 125 mg/dL 74-106 Fin al North Plasma mg/dL [facility] (Internal) : [address] ? ? S Low Bun 4 mg/dL 9-20 Final North mg/dL [facility] (Internal) : [address] ? ? S Low Crea 0.60 mg/dL 0.66-1.25 Final Nor th mg/dL [facility] (Internal) : [address] ? ? S ? Ca 8.6 mg/dL 8.4-10.2 Final North mg/dL [facility] (Internal) : [address] ? ? S ? Na 142 mmol/L 137-145 Final [place] mmol/L [facility] (Internal) : [address] ? ? S ? K 3.8 mmol/L 3.5-5.1 Final North mmol/L [facility] (Internal) : [address] ? ? S High Cl 113 mmol/L 98-107 Final [place] mmol/L [facility] (Internal) : [address] ? ? S ? Tco2 22.0 mmol/L 22.0-30.0 Final No rth mmol/L [facility] (Internal) : [address] 12/29/2020 BMP, Serum or S High g/r 127 mg/dL 74-106 Fin al North Plasma mg/dL [facility] (Internal) : [address] ? ? S Low Bun 5 mg/dL 9-20 Final North mg/dL [facility] (Internal) : [address] ? ? S Low Crea 0.60 mg/dL 0.66-1.25 Final Nor th mg/dL [facility] (Internal) : [address] ? ? S Low Ca 8.2 mg/dL 8.4-10.2 Final North mg/dL [facility] (Internal) : [address] ? ? S ? Na 139 mmol/L 137-145 Final [place] mmol/L [facility] (Internal) : [address] ? ? S ? K 3.6 mmol/L 3.5-5.1 Final [place] mmol/L [facility] (Internal) : [address] ? ? S High Cl 110 mmol/L 98-107 Final [facility] mmol/L [facility] (Internal) : [address] ? ? S ? Tco2 24.0 mmol/L 22.0-30.0 Final No rth mmol/L [facility] (Internal) : [address] 12/29/2020 CBC W/ Auto BLD Low Wbc 4.5 10*3/uL 5.0-10.0 F inal North Diff 10*3/uL [facility] (Internal) : [address] ? ? BLD Low Rbc 3.89 4.60-6.00 Final [facility] 10*6/uL 10*6/uL [facility] (Internal) : [address] ? ? BLD Low Hgb 8.4 g/dL 14.0-18.0 Final [facility] g/dL [facility] (Internal) : [address] ? ? BLD Low Hct 28.7 % 41.0-51.0 Final [facility] (Internal) : [address] ? ? BLD Low Mcv 73.8 fL 80.0-96.0 Final [facility] (Internal) : [address] ? ? BLD Low Mch 21.6 pg 26.0-32.0 Final [facility] (Internal) : [address] ? ? BLD Low Mchc 29.3 g/dL 31.0-35.0 Final Nort h g/dL [facility] (Internal) : [address] ? ? BLD High Rdw 28.3 % 11.5-14.5 Final [facility] ab (Internal) : [address] ? ? BLD ? Plt 196 10*3/uL 130-450 Final Nort h 10*3/uL [facility] (Internal) : [address] ? ? BLD ? Anc 2.61 ? Final [facility] 10*3/uL [facility] (Internal) : [address] ? ? BLD ? Nlr 2.39 0.00-3.20 Final [facility] ab (Internal) : [address] [place] ? ? BLD ? Neutro 58.7 % 40.0-75.0 Final [facility] ab (Internal) : [address] [place] ? ? BLD ? Lymph 24.5 % 20.0-50.0 Final [facility] (Internal) : [address] [place] ? ? BLD ? [place] 8.8 % 2.0-10.0 Final [facility] (Internal) : [address] [place] ? ? BLD High Eos 7.6 % 1.0-6.0 % Final [facility] ab (Internal) : [address] [place] ? ? BLD ? Baso 0.4 % 0.0-1.0 % Final [facility] (Internal) : [address] ? ? BLD ? Ig 0.0 % 0.0-0.9 % Final [facility] (Internal) : [address] 12/29/2020 RBC BLD ? [place] large ? Final [facility] (Internal) : [address] ? ? BLD ? [place] occasional ? Final [facility] ab (Internal) : [address] ? ? BLD ? Hypo small ? Final [facility] ab (Internal) : [address] [place] ? ? BLD ? Micro moderate ? Final [facility] (Internal) : [address] ? ? BLD ? Poik small [hpf] ? Final [facility] ab (Internal) : [address] ? ? BLD ? Polychro small ? Final [facility] (Internal) : [address] ? ? BLD ? Oval small ? Final [facility] L ab (Internal) : [address] [place] 12/28/2020 BMP, Serum or S High g/r 110 mg/dL 74-106 Fin al North Plasma mg/dL [facility] L ab (Internal) : [address] ? ? S Low Bun 5 mg/dL 9-20 Final North mg/dL [facility] ([facility] : [address] ? ? S ? Crea 0.70 mg/dL 0.66-1.25 Final Nor th mg/dL [facility] (Internal) : [address] ? ? S Low Ca 8.2 mg/dL 8.4-10.2 Final North mg/dL [facility] (Internal) : [address] ? ? S ? Na 140 mmol/L 137-145 Final [place] mmol/L [facility] (Internal) : [address] ? ? S ? K 3.6 mmol/L 3.5-5.1 Final [facility] mmol/L [facility] (Internal) : [address] ? ? S ? Cl 107 mmol/L 98-107 Final [place] mmol/L [facility] (Internal) : [address] ? ? S ? Tco2 26.0 mmol/L 22.0-30.0 Final No rth mmol/L [facility] (Internal) : [address] 12/27/2020 BMP, Serum or S ? g/r 101 mg/dL 74-106 Fin al [place] Plasma mg/dL [facility] (Internal) : [address] ? ? S ? Bun 9 mg/dL 9-20 Final North mg/dL [facility] (Internal) : [address] ? ? S ? Crea 0.80 mg/dL 0.66-1.25 Final Nor th mg/dL [facility] (Internal) : [address] ? ? S ? Ca 8.4 mg/dL 8.4-10.2 Final North mg/dL [facility] (Internal) : [address] ? ? S ? Na 141 mmol/L 137-145 Final [facility] mmol/L [facility] (Internal) : [address] ? ? S ? K 3.5 mmol/L 3.5-5.1 Final [facility] mmol/L [facility] (Internal) : [address] ? ? S ? Cl 106 mmol/L 98-107 Final [facility] mmol/L [facility] (Internal) : [address] ? ? S ? Tco2 27.0 mmol/L 22.0-30.0 Final No rth mmol/L [facility] (Internal) : [address] 12/27/2020 CBC W/ Auto BLD Low Wbc 4.6 10*3/uL 5.0-10.0 F inal North Diff 10*3/uL [facility] (Internal) : [address] ? ? BLD Low Rbc 4.16 4.60-6.00 Final North 10*6/uL 10*6/uL [facility] (Internal) : [address] ? ? BLD Low Hgb 8.8 g/dL 14.0-18.0 Final [facility] g/dL [facility] (Internal) : [address] ? ? BLD Low Hct 30.7 % 41.0-51.0 Final [facility] L ab (Internal) : [address] ? ? BLD Low Mcv 73.8 fL 80.0-96.0 Final [facility] L ab (Internal) : [address] ? ? BLD Low Mch 21.2 pg 26.0-32.0 Final [facility] L ab (Internal) : [address] ? ? BLD Low Mchc 28.7 g/dL 31.0-35.0 Final Nort h g/dL [facility] L ab (Internal) : [address] ? ? BLD High Rdw 28.8 % 11.5-14.5 Final [facility] L ab (Internal) : [address] ? ? BLD ? Plt 212 10*3/uL 130-450 Final Nort h 10*3/uL [facility] L ab (Internal) : [address] ? ? BLD ? Anc 2.51 ? Final [facility] 10*3/uL [facility] (Internal) : [address] ? ? BLD ? Nlr 1.62 0.00-3.20 Final [facility] ab (Internal) : [address] ? ? BLD ? Neutro 54.2 % 40.0-75.0 Final [facility] L ab (Internal) : [address] ? ? BLD ? Lymph 33.4 % 20.0-50.0 Final [facility] L ab (Internal) : [address] ? ? BLD High [place] 10.3 % 2.0-10.0 Final [facility] L ab (Internal) : [address] ? ? BLD ? Eos 1.5 % 1.0-6.0 % Final [facility] ab (Internal) : [address] [place] ? ? BLD ? Baso 0.4 % 0.0-1.0 % Final [facility] ab (Internal) : [address] [place] ? ? BLD ? Ig 0.2 % 0.0-0.9 % Final [facility] L ab (Internal) : [address] [place] 12/27/2020 RBC BLD ? [place] large ? Final [facility] L ab (Internal) : [address] [place] ? ? BLD ? Hypo occasional ? Final [facility] ab (Internal) : [address] [place] ? ? BLD ? Micro small ? Final [facility] L ab (Internal) : [address] [place] ? ? BLD ? Polychro rare ? Final [facility] (Internal) : [address] [place] ? ? BLD ? Oval occasional ? Final [facility] L ab (Internal) : [address] [place] 12/26/2020 Type + BLD ? Abo A ? Final [facility] L ab (Internal) : [address] [place] ? ? BLD ? Rh negative ? Final [facility] L ab (Internal) : [address] [place] ? ? BLD ? Ab Scrn negative negative Final [facility] L ab (Internal) : [address] 12/26/2020 Pathology TISS ? Report (see below) ? Tricia marcus [facility] L ab (Internal) : [address] 12/17/2020 CBC W/ Auto BLD ? Wbc 5.9 10*3/uL 5.0-10.0 F inal [place] Diff 10*3/uL [facility] L ab (Internal) : [address] ? ? BLD ? Rbc 5.38 4.60-6.00 Final [facility] 10*6/uL 10*6/uL [facility] L ab (Internal) : [address] ? ? BLD Low Hgb 11.3 g/dL 14.0-18.0 Final Nort h g/dL [facility] L ab (Internal) : [address] ? ? BLD Low Hct 39.0 % 41.0-51.0 Final [facility] L ab (Internal) : [address] ? ? BLD Low Mcv 72.5 fL 80.0-96.0 Final [facility] L ab (Internal) : [address] ? ? BLD Low Mch 21.0 pg 26.0-32.0 Final [facility] L ab (Internal) : [address] ? ? BLD Low Mchc 29.0 g/dL 31.0-35.0 Final Nort h g/dL [facility] L ab (Internal) : [address] ? ? BLD High Rdw 31.5 % 11.5-14.5 Final [facility] L ab (Internal) : [address] ? ? BLD ? Plt 242 10*3/uL 130-450 Final Nort h 10*3/uL [facility] L ab (Internal) : [address] ? ? BLD ? Anc 3.43 ? Final [facility] 10*3/uL [facility] L ab (Internal) : [address] ? ? BLD ? Nlr 2.40 0.00-3.20 Final [facility] L ab (Internal) : [address] ? ? BLD ? Neutro 58.5 % 40.0-75.0 Final [facility] L ab (Internal) : [address] ? ? BLD ? Lymph 24.4 % 20.0-50.0 Final [facility] L ab (Internal) : [address] [address] t ? ? BLD High Coryell 10.1 % 2.0-10.0 Final [facility] L ab (Internal) : [address] t ? ? BLD High Eos 6.1 % 1.0-6.0 % Final [facility] L ab (Internal) : [address] ? ? BLD ? Baso 0.7 % 0.0-1.0 % Final [facility] L ab (Internal) : [address] t ? ? BLD ? Ig 0.2 % 0.0-0.9 % Final [facility] L ab (Internal) : [address] t 12/17/2020 RBC BLD ? Aniso large ? Final [facility] L ab (Internal) : [address] t ? ? BLD ? Micro small ? Final [facility] L ab (Internal) : [address] t ? ? BLD ? Poik occasional ? Final [facility] [hpf] [facility] L ab (Internal) : [address] t ? ? BLD ? Oval small ? Final [facility] L ab (Internal) : [address] t 12/04/2020 CMP, Serum or S High g/r 186 mg/dL 74-106 Fin al [facility] Plasma mg/dL [facility] L ab (Internal) : [address] t ? ? S ? Bun 12 mg/dL 9-20 Final [facility] mg/dL [facility] L ab (Internal) : [address] t ? ? S ? Crea 0.80 mg/dL 0.66-1.25 Final [facility] th mg/dL [facility] L ab (Internal) : [address] t ? ? S Low Ca 8.3 mg/dL 8.4-10.2 Final [facility] mg/dL [facility] L ab (Internal) : [address] t ? ? S ? Na 139 mmol/L 137-145 Final [facility] mmol/L [facility] L ab (Internal) : [address] t ? ? S ? K 3.7 mmol/L 3.5-5.1 Final [facility] mmol/L [facility] L ab (Internal) : [address] t ? ? S ? Cl 105 mmol/L 98-107 Final [facility] mmol/L [facility] L ab (Internal) : [address] t ? ? S ? Tco2 26.0 mmol/L 22.0-30.0 Final No rth mmol/L [facility] L ab (Internal) : [address] t ? ? S Low Tp 6.1 g/dL 6.3-8.2 Final [facility] g/dL [facility] L ab (Internal) : [address] t ? ? S Low Alb 3.2 g/dL 3.5-5.0 Final [facility] g/dL [facility] L ab (Internal) : [address] t ? ? S ? Tbil 0.3 mg/dL 0.2-1.3 Final [facility] mg/dL [facility] L ab (Internal) : [address] t ? ? S ? Alp 70 U/L 50-136 Final [facility] U/L [facility] L ab (Internal) : [address] ? ? S Low Alt 19 U/L 21-72 U/L Final [facility] (Sgpt) [facility] L ab (Internal) : [address] t ? ? S ? Ast 29 U/L 17-59 U/L Final [facility] (Sgot) [facility] L ab (Internal) : [address] 12/04/2020 Carcinoembryo S ? Carcinoe 3.1 NG/mL see not e Final [facility] nestor Ag, mbryonic NG/mL Country Quant, Serum Antigen Hos pital Lab or Plasma (Sports Management Professor al): [address] 12/04/2020 Pathology TISS ? Report (see below) ? Tricia l [facility] L ab (Internal) : [address] 11/28/2020 Cbc BLD ? Wbc 7.0 10*3/uL 5.0-10.0 Final [facility] 10*3/uL [facility] L ab (Internal) : [address] ? ? BLD ? Rbc 5.08 4.60-6.00 Final [facility] 10*6/uL 10*6/uL [facility] L ab (Internal) : [address] ? ? BLD Low Hgb 9.4 g/dL 14.0-18.0 Final [facility] g/dL [facility] L ab (Internal) : [address] ? ? BLD Low Hct 34.4 % 41.0-51.0 Final [facility] L ab (Internal) : [address] ? ? BLD Low Mcv 67.7 fL 80.0-96.0 Final [facility] L ab (Internal) : [address] ? ? BLD Low Mch 18.5 pg 26.0-32.0 Final [facility] L ab (Internal) : [address] ? ? BLD Low Mchc 27.3 g/dL 31.0-35.0 [facility] (Internal[facility] : [address] ? ? BLD High Rdw 25.4 % 11.5-14.5 Final [facility] L ab (Internal) : [address] ? ? BLD ? Plt 313 10*3/uL 130-450 Final Nort h 10*3/uL [facility] L ab (Internal) : [address] t ? ? BLD ? Anc 3.94 ? Final [facility] 10*3/uL [facility] L ab (Internal) : [address] 11/28/2020 Ferritin, S ? Ferr 69 NG/mL 18-464 Final N orth Serum or NG/mL [facility] Hospital L ab (Internal) : [address] 11/25/2020 Cbc BLD ? Wbc 5.5 10*3/uL 5.0-10.0 Final [facility] 10*3/uL [facility] L ab (Internal) : [address] ? ? BLD Low Rbc 4.12 4.60-6.00 Final [facility] 10*6/uL 10*6/uL [facility] L ab (Internal) : [address] ? ? BLD CRITICAL Hgb 6.6 g/dL 14.0-18.0 Final Nor th LOW g/dL [facility] L ab (Internal) : [address] t ? ? BLD Low Hct 25.6 % 41.0-51.0 Final [facility] L ab (Internal) : [address] ? ? BLD Low Mcv 62.1 fL 80.0-96.0 Final [facility] L ab (Internal) : [address] t ? ? BLD Low Mch 16.0 pg 26.0-32.0 Final [facility] L ab (Internal) : [address] t ? ? BLD Low Mchc 25.8 g/dL 31.0-35.0 Final Nort h g/dL [facility] L ab (Internal) : [address] t ? ? BLD High Rdw 19.5 % 11.5-14.5 Final [facility] L ab (Internal) : [address] ? ? BLD ? Plt 328 10*3/uL 130-450 Final Nort h 10*3/uL [facility] L ab (Internal) : [address] ? ? BLD ? Anc 3.04 ? Final [facility] 10*3/uL [facility] L ab (Internal) : [address] 11/25/2020 BMP, Serum or S ? g/r 106 mg/dL 74-106 Fin al North Plasma mg/dL [facility] L ab (Internal) : [address] t ? ? S ? Bun 16 mg/dL 9-20 Final [place] mg/dL [facility] L ab (Internal) : [address] t ? ? S ? Crea 0.80 mg/dL 0.66-1.25 Final Nor th mg/dL [facility] L ab (Internal) : [address] t ? ? S ? Ca 8.7 mg/dL 8.4-10.2 Final [place] mg/dL [facility] L ab (Internal) : [address] t ? ? S ? Na 139 mmol/L 137-145 Final [facility] mmol/L [facility] L ab (Internal) : [address] ? ? S ? K 4.4 mmol/L 3.5-5.1 Final [facility] mmol/L [facility] L ab (Internal) : [address] t ? ? S ? Cl 106 mmol/L 98-107 Final [facility] mmol/L [facility] L ab (Internal) : [address] t ? ? S ? Tco2 24.0 mmol/L 22.0-30.0 Final No rth mmol/L [facility] L ab (Internal) : [address] 11/25/2020 Lipid Panel, S ? Chol 105 mg/dL 50-200 Tricia l [facility] Serum mg/dL [facility] L ab (Internal) : [address] t ? ? S ? Trig 47 mg/dL 10-150 Final [facility] mg/dL [facility] L ab (Internal) : [address] ? ? S Low Hdl 26 mg/dL 40-60 Final [facility] mg/dL [facility] L ab (Internal) : [address] t ? ? S ? Ldl 70 mg/dL 0-130 Final [facility] mg/dL [facility] L ab (Internal) : [address] 11/25/2020 Ferritin, S Low Ferr <4 NG/mL 18-464 Final N orth Serum or NG/mL [facility] L ab (Internal) : [address] 11/25/2020 Type + BLD ? Abo A ? Final [facility] Screen, Blood Cou [facility] L ab (Internal) : [address] ? ? BLD ? Rh negative ? Final [facility] L ab (Internal) : [address] ? ? BLD ? Ab Scrn negative negative Final [facility] (Internal) : [address] 11/25/2020 Crossmatch, BLD ? X-match, complete ? Fin al [facility] Lrc, # 2 U [facility] L ab (Internal) : [address] 05/27/2020 HbA1C BLD ? Ha1C 5.8 % 4.0-6.0 % Final Nor th (Hemoglobin Count ry a1C), Blood Hospi santa Lab (Internal) : [address] 05/27/2020 PSA, Serum or S ? PSA Scrn 1.1 NG/mL 0.0-4.0 Final [facility] Plasma NG/mL [facility] L ab (Internal) : [address] [facility] 05/09/2020 Partial BLD ? PTT (Ip) 25 s 22-35 s Final N orth Thromboplasti Cou ntry n [facility] L ab (Internal) : [address] [facility] 05/09/2020 Troponin I, S High Trop 0.08 NG/mL 0.00-0.06 F inal [facility] Serum or NG/mL [facility] L ab (Internal) : [address] [facility] 05/09/2020 CBC W/ Auto BLD ? Wbc 6.9 10*3/uL 5.0-10.0 F inal [facility] Diff 10*3/uL [facility] L ab (Internal) : [address] t ? ? BLD High Rbc 6.17 4.60-6.00 Final [facility] 10*6/uL 10*6/uL [facility] L ab (Internal) : [address] t ? ? BLD ? Hgb 16.4 g/dL 14.0-18.0 Final Nort h g/dL [facility] L ab (Internal) : [address] ? ? BLD ? Hct 50.3 % 41.0-51.0 Final [facility] L ab (Internal) : [address] t ? ? BLD ? Mcv 81.5 fL 80.0-96.0 Final [facility] L ab (Internal) : [address] ? ? BLD ? Mch 26.6 pg 26.0-32.0 Final [facility] L ab (Internal) : [address] ? ? BLD ? Mchc 32.6 g/dL 31.0-35.0 Final Nort h g/dL [facility] L ab (Internal) : [address] ? ? BLD ? Rdw 14.4 % 11.5-14.5 Final [facility] L ab (Internal) : [address] ? ? BLD ? Plt 252 10*3/uL 130-450 Final Nort h 10*3/uL [facility] L ab (Internal) : [address] ? ? BLD ? Anc 4.65 ? Final North 10*3/uL [facility] L ab (Internal) : [address] ? ? BLD High Nlr 3.37 0.00-3.20 Final [facility] L ab (Internal) : [address] ? ? BLD ? Neutro 67.5 % 40.0-75.0 Final [facility] L ab (Internal) : [address] ? ? BLD ? Lymph 20.0 % 20.0-50.0 Final [facility] L ab (Internal) : [address] ? ? BLD ? Coryell 9.0 % 2.0-10.0 Final [facility] L ab (Internal) : [address] ? ? BLD ? Eos 2.6 % 1.0-6.0 % Final [facility] L ab (Internal) : [address] ? ? BLD ? Baso 0.6 % 0.0-1.0 % Final [facility] L ab (Internal) : [address] ? ? BLD ? Ig 0.3 % 0.0-0.9 % Final [facility] L ab (Internal) : [address] 05/09/2020 CMP, Serum or S High g/r 188 mg/dL 74-106 Fin al [facility] Plasma mg/dL [facility] L ab (Internal) : [address] ? ? S ? Bun 15 mg/dL 9-20 Final [facility] mg/dL [facility] L ab (Internal) : [address] ? ? S ? Crea 1.00 mg/dL 0.66-1.25 Final Nor th mg/dL [facility] L ab (Internal) : [address] ? ? S ? Ca 9.7 mg/dL 8.4-10.2 Final [facility] mg/dL [facility] (Internal[facility] : [address] ? ? S ? Na 140 mmol/L 137-145 Final [facility] mmol/L [facility] (Internal) : [address] ? ? S ? K 3.9 mmol/L 3.5-5.1 Final [facility] mmol/L [facility] (Internal) : [address] ? ? S ? Cl 107 mmol/L 98-107 Final [facility] mmol/L [facility] (Internal) : [address] ? ? S ? Tco2 24.0 mmol/L 22.0-30.0 Final No rth mmol/L [facility] (Internal) : [address] ? ? S ? Tp 8.0 g/dL 6.3-8.2 Final [facility] g/dL [facility] (Internal) : [address] ? ? S ? Alb 4.3 g/dL 3.5-5.0 Final [facility] g/dL [facility] (Internal) : [address] ? ? S ? Tbil 0.4 mg/dL 0.2-1.3 Final [facility] mg/dL [facility] (Internal) : [address] ? ? S ? Alp 98 U/L 50-136 Final [facility] U/L [facility] L ab (Internal) : [address] ? ? S Low Alt 17 U/L 21-72 U/L Final [facility] (Sgpt) [facility] L ab (Internal) : [address] ? ? S ? Ast 23 U/L 17-59 U/L Final [facility] (Sgot) [facility] L ab (Internal) : [address] 05/09/2020 Lipase, Serum S ? Lip 170 U/L 23-300 Final North or Plasma U/L [facility] L ab (Internal) : [address] Past Encounters 02/25/2021 Coronary Arteriosclerosis; Malignant Fidel or of Colon Nikita Villasenor, DO: [address] [place] [address], Ph. 02/04/2021 Zuri Joshua MD: [address] [place] [address], Ph. 02/04/2021 Coronary Arteriosclerosis; Malignant Fidel or of Colon Tressa Ramos MD: [address] [place] [address], Ph. 01/17/2021 Hyponatremia; Iron Deficiency Anemia; Co ronary Arteriosclerosis; Familial Multiple Polyposis Syndrome Nikita Villasenor DO: [address] [place] [address], Ph. 01/14/2021 Zuri Joshua MD: [address] [place] [address], Ph. 12/17/2020 Pre-surgery Testing Zuri Joshua MD: [address] [place] [address], Ph. 12/03/2020 Iron Deficiency Anemia Nikita Villasenor DO: [address] [place] [address], Ph. 11/26/2020 Zuri Joshua MD: [address] [place] [address], Ph. 11/26/2020 Coronary Arteriosclerosis; Hyperlipidemi a Tressa Ramos MD: [address] [place] [address], Ph. 11/25/2020 Coronary Arteriosclerosis; Hypertensive Disorder; Gastrointestinal Hemorrhage; Cramp in Lower Limb Nikita Villasenor DO: [address] [place] [address], Ph. 09/02/2020 Coronary Arteriosclerosis Tressa Ramos MD: [address] [place] [address], Ph. 07/29/2020 Coronary Arteriosclerosis; Essential Hyp ertension; Hyperlipidemia Tressa Ramos MD: [address] [place] [address], Ph. 05/24/2020 Coronary Arteriosclerosis; Nicotine Depe ndence; Screening for Malignant Neoplasm of Colon; Screening for Malignant Neoplasm of Prostate; Hyperglycemia Nikita Villasenor, DO: [address] [facility] [place] [address], Ph. Social History Tobacco Smoking Status Former Smoker (1 pack per a Notes: 01/05/2021 1/4 day) [id number] stopped s moking Vaccine List Vaccine Type COVID-19 vaccine, vector-nr, [id number], PF , 0.5 mL 09/24/2020 influenza, seasonal, injectable, preserv ative free 05/12/2020 Plan of Care Reminders Provider Appointments None ? ? recorded. Lab None ? ? recorded. Referral None ? ? recorded. Procedures None ? ? recorded. Surgeries None ? ? recorded. Imaging None ? ? recorded. Vitals 02/25/2021 12:40PM Follow Up 20 Height Weight BMI Blood Pressure 170.18 cm 70.77 kg 24.4 kg/m2 100/70 mm[Hg] 02/04/2021 10:00AM Acute 15 Height Weight BMI 170.18 cm 71.21 kg 24.6 kg/m2 02/04/2021 09:40AM Follow Up 20 Height Weight BMI Blood Pressure 170.18 cm 71.65 kg 24.7 kg/m2 98/65 mm[Hg] 01/17/2021 02:40PM Follow Up 20 Height Weight BMI Blood Pressure 170.18 cm 71.26 kg 24.6 kg/m2 96/62 mm[Hg] 01/14/2021 08:45AM Office 15 Height Weight BMI Blood Pressure 170.18 cm 83.01 kg 28.7 kg/m2 130/72 mm[Hg] 12/17/2020 10:00AM Office 15 Height Weight BMI Blood Pressure 170.18 cm 83.01 kg 28.7 kg/m2 110/68 mm[Hg] 12/03/2020 12:40PM Acute 20 Height Weight BMI Blood Pressure 170.18 cm 83.01 kg 28.7 kg/m2 94/60 mm[Hg] 11/26/2020 09:40AM Follow Up 20 Height Weight BMI Blood Pressure 170.18 cm 84.25 kg 29.1 kg/m2 114/70 mm[Hg] 11/26/2020 02:30PM Office 15 Height Weight BMI Blood Pressure 170.18 cm 84.78 kg 29.3 kg/m2 100/62 mm[Hg] 11/25/2020 09:00AM Follow Up 20 Height Weight BMI Blood Pressure 170.18 cm 83.69 kg 28.9 kg/m2 90/56 mm[Hg] 09/02/2020 11:20AM Follow Up 20 Height Weight BMI Blood Pressure 170.18 cm 85.9 kg 29.7 kg/m2 104/61 mm[Hg] 07/29/2020 09:00AM Follow Up 20 Height Weight BMI Blood Pressure 170.18 cm 85.25 kg 29.4 kg/m2 115/65 mm[Hg] 05/24/2020 03:00PM New Patient 40 Height Weight BMI Blood Pressure 170.18 cm 84.19 kg 29.1 kg/m2 100/58 mm[Hg]
--- OUTSIDE RECORDS SUMMARY | 2021-04-11 09:38 | XMS_ITS | Encounter Summary ---
:1965 Author Care Team Providers Name Role Phone Nikita Zimmerman DO Primary Care Provider [phone] Tressa Ramos MD [employer] [phone] James Chamberlain General Surgeon [phone] Reason for Visit None recorded. Assessment and Plan 1. Coronary arteriosclerosis [place] 05/09/20. Cath showed diffu se disease. 80% [...] No symptoms attributable to this disease currently. 2. Malignant tumor of colon Diagnosed in 2020 due to GI bl eeding. Has undergone colectomy. Tumor board recommended proctectomy as well as there was rectal cancer noted as well but patient has been committed to having his ostomy reversed. Will undergo 3 months of chemotherapy with Capox (capecitabine an d oxaliplatin). Radiation therapy has not been recommended at this time. Discussion Note: None recorded.Patient educational handouts: No [...] MD Richard ? Follow up 06/26/2021 Nikita Elsie, 20 10:00AM DO Lab None ? ? [...] BMI Blood Pressure 5 ft 7 in 156 lbs 0.4 oz 24.4 kg/m2 100/70 mm[Hg] Results Lab Results None recorded. Allergies [...] pack per a Notes: 01/05/2021 1/4 day) [id number] stopped s moking What is the highest grade or [id number] level of school you have completed or the highest degree you have received? Are you currently employed? Y Notes: at [employer] y Have you used IV drugs? [...] to fill out an d bring to [facility] Do you feel safe at home? Y [...] months? Functional Status No Impairment. Past Encounters 02/25/2021 Coronary Arteriosclerosis; Malignant Fidel or of Colon Nikita Zimmerman, DO: [address] [place] [address], Ph. 02/04/2021 James Chamberlain MD: [address] [place] [address], Ph. 02/04/2021 Coronary Arteriosclerosis; Malignant Fidel or of Colon Tressa Ramos MD: [address], [place] [address], Ph. History of Present Illness ? Coronary Artery Disease F/U Reported By: Patient HPI: Severity: no chest discomfor t with daily activities, has not needed to use Nitroglycerin. Context: ; back to smoking / ppd since 01/05/2021. Associated Symptoms: no ches t pain, no neck pain, no left arm pain, no dyspnea with exertion, no sw eating, nausea, under stress Note: Richard started chemo on Wednesday. Started to feel poorly shortly thereafter. <div>
</div><div>He is getting the Capox (capecitabine and oxaliplatin) regimen. He may need toget RT as well, but this will depend on progress. </div><div>
</div><di v>He will undergo chemotherapy for 3 months.</div> Review of Systems ? Notes: Fatigue has been prominent; denies chest pain, dyspnea, palpitations, dizziness, headaches, sudden visual changes, cough, or new peripheral edema. Physical Exam ? Notes: <p>General: Alert and [...]
[2021-04-11 09:43] LABS: Abs Immature Grans 0.01 10^3/uL (0.0-0.06); Absolute Basophil Count 0.03 10^3/uL (0.0-0.2); Absolute Eosinophil Count 0.18 10^3/uL (0.0-0.7); Absolute Lymphocyte Count 1.43 10^3/uL (1.2-3.4); Absolute Monocyte Count 0.57 10^3/uL (0.1-0.8); Absolute Neutrophil Count 2.67 10^3/uL (1.2-6.7); Basophils % 0.6; Eosinophils % 3.7; HCT 38.9 % (40.0-50.0); HGB 12.1 g/dL (13.5-17.5); Immature Grans % 0.2; Lymphocytes % 29.2; MCH 25.5 pg (27.0-33.0); MCHC 31.1 % (32.0-36.0); MCV 82.1 fL (80-95); MPV 9.6 fL (8.0-11.0); Monocytes % 11.7; Neutrophils % 54.6; Nucleated RBC 0 %; Platelet Count 140 10^3/uL (130-400); RBC 4.74 10^6/uL (4.36-5.78); RDW 27.7 % (11.8-14.1); RDW-SD 78.4 fL; WBC 4.89 10^3/uL (4.4-10.8)
[2021-04-11 09:51] LABS: Anisocytosis 2+; Diff Comment RBC Morph Reviewed; Hypochromasia 1+
[2021-04-11 09:52] LABS: Poikilocytes 1+
[2021-04-11 09:56] LABS: ALT 30 U/L (16-63); AST 17 U/L (15-37); Albumin 3.1 g/dL (3.4-5.0); Alkaline Phosphatase 62 U/L (46-116); Anion Gap 7.4 mmol/L (3-11); BUN 14 mg/dL (7-18); Bilirubin, Total 0.6 mg/dL (0.2-1.0); CO2 26.6 mmol/L (21.0-32.0); Calcium 8.8 mg/dL (8.5-10.1); Chloride 105 mmol/L (98-107); Glucose 138 mg/dL (74-106); Sodium 139 mmol/L (136-145); Total Protein 6.8 g/dL (6.4-8.2)
[2021-04-11 17:25] LABS: CEA <2.0 ng/mL (See Note)
== END 2021-04-11 09:34 | disposition home or self-care (01) ==
LOC: LBO 09:35
PROVIDERS: Visit Provider Internal Medicine Hematology & Oncology
DX: C18.2 Malignant neoplasm of ascending colon (principal); C20 Malignant neoplasm of rectum
CPT/HCPCS: 36415; 80053; 82378; 85025

== ENCOUNTER 2021-05-02 00:57 | Outpatient (RCR) | payer BC, SELFPAY ==
[2021-05-02] MEDS: Normal Saline Flush 10 ML SYR IVP (09:13)
[2021-05-02 09:42] LABS: Abs Immature Grans 0.01 10^3/uL (0.0-0.06); Absolute Basophil Count 0.03 10^3/uL (0.0-0.2); Absolute Lymphocyte Count 1.53 10^3/uL (1.2-3.4); Absolute Monocyte Count 0.89 10^3/uL (0.1-0.8); Absolute Neutrophil Count 2.37 10^3/uL (1.2-6.7); Basophils % 0.6; HCT 37.3 % (40.0-50.0); Immature Grans % 0.2; Lymphocytes % 30.4; MCH 26.7 pg (27.0-33.0); MCHC 32.2 % (32.0-36.0); MCV 82.9 fL (80-95); MPV 9.9 fL (8.0-11.0); Monocytes % 17.7; Neutrophils % 47.1; Nucleated RBC 0 %; Platelet Count 195 10^3/uL (130-400); RDW 30.1 % (11.8-14.1); RDW-SD 86.2 fL; WBC 5.03 10^3/uL (4.4-10.8)
[2021-05-02 09:46] LABS: Anisocytosis 2+; Diff Comment RBC Morph Reviewed
[2021-05-02 09:49] LABS: ALT 22 U/L (16-63); AST 14 U/L (15-37); Albumin 3.4 g/dL (3.4-5.0); Alkaline Phosphatase 65 U/L (46-116); Anion Gap 9.5 mmol/L (3-11); BUN 12 mg/dL (7-18); Bilirubin, Total 0.5 mg/dL (0.2-1.0); CO2 25.5 mmol/L (21.0-32.0); CREATININE 0.9 mg/dL (0.70-1.30); Calcium 8.8 mg/dL (8.5-10.1); Chloride 104 mmol/L (98-107); Glucose 102 mg/dL (74-106); Potassium 3.6 mmol/L (3.5-5.1); Sodium 139 mmol/L (136-145); Total Protein 6.9 g/dL (6.4-8.2)
[2021-05-02 18:12] LABS: CEA <2.0 ng/mL (See Note)
== END 2021-05-18 23:59 | disposition home or self-care (01) ==
LOC: INF 00:57
PROVIDERS: Visit Provider Internal Medicine Hematology & Oncology
DX: C18.2 Malignant neoplasm of ascending colon (principal); C20 Malignant neoplasm of rectum; Z45.2 Encounter for adjustment and management of vascular access device
CPT/HCPCS: 36415; 80053; 82378; 85025

== ENCOUNTER 2021-06-06 14:26 | Outpatient (CLI) | payer BC, SELFPAY ==
[2021-06-06 13:09] LABS: Abs Immature Grans 0.01 10^3/uL (0.0-0.06); Absolute Basophil Count 0.04 10^3/uL (0.0-0.2); Absolute Eosinophil Count 0.15 10^3/uL (0.0-0.7); Absolute Lymphocyte Count 2.01 10^3/uL (1.2-3.4); Absolute Monocyte Count 0.55 10^3/uL (0.1-0.8); Absolute Neutrophil Count 2.14 10^3/uL (1.2-6.7); Basophils % 0.8; Eosinophils % 3.1; HCT 43.4 % (40.0-50.0); HGB 14.1 g/dL (13.5-17.5); Immature Grans % 0.2; MCH 29.1 pg (27.0-33.0); MCHC 32.5 % (32.0-36.0); MCV 89.7 fL (80-95); MPV 9.4 fL (8.0-11.0); Monocytes % 11.2; Neutrophils % 43.7; Nucleated RBC 0 %; Platelet Count 143 10^3/uL (130-400); RBC 4.84 10^6/uL (4.36-5.78); RDW 22.3 % (11.8-14.1); RDW-SD 74.5 fL
[2021-06-06 13:20] LABS: Anisocytosis 2+; Diff Comment RBC Morph Reviewed
[2021-06-06 13:23] LABS: ALT 35 U/L (16-63); AST 18 U/L (15-37); Albumin 3.8 g/dL (3.4-5.0); Alkaline Phosphatase 99 U/L (46-116); Anion Gap 7.4 mmol/L (3-11); BUN 21 mg/dL (7-18); Bilirubin, Total 0.6 mg/dL (0.2-1.0); CO2 28.6 mmol/L (21.0-32.0); Calcium 9.2 mg/dL (8.5-10.1); Chloride 104 mmol/L (98-107); Glucose 136 mg/dL (74-106); Potassium 4.3 mmol/L (3.5-5.1); Sodium 140 mmol/L (136-145); Total Protein 8.2 g/dL (6.4-8.2)
== END 2021-06-06 14:27 | disposition home or self-care (01) ==
LOC: LBO 14:27
PROVIDERS: Visit Provider Internal Medicine Hematology & Oncology
DX: C18.2 Malignant neoplasm of ascending colon (principal)
CPT/HCPCS: 36415; 80053; 85025

== ENCOUNTER 2023-10-15 13:50 | Outpatient (CLI) | payer BC, SELFPAY ==
[2023-10-15 13:40] LABS: Abs Immature Grans 0.01 10^3/uL (0.0-0.06); Absolute Basophil Count 0.02 10^3/uL (0.0-0.2); Absolute Eosinophil Count 0.12 10^3/uL (0.0-0.7); Absolute Lymphocyte Count 1.89 10^3/uL (1.2-3.4); Absolute Neutrophil Count 1.89 10^3/uL (1.2-6.7); Basophils % 0.5; Eosinophils % 2.7; HCT 46.2 % (40.0-50.0); HGB 15.3 g/dL (13.5-17.5); Immature Grans % 0.2; Lymphocytes % 42.7; MCH 28.9 pg (27.0-33.0); MCHC 33.1 % (32.0-36.0); MCV 87 fL (80-95); MPV 9.9 fL (8.0-11.0); Monocytes % 11.3; Neutrophils % 42.6; Platelet Count 155 10^3/uL (130-400); RBC 5.29 10^6/uL (4.36-5.78); RDW 13.3 % (11.8-14.1); RDW-SD 42.8 fL; WBC 4.43 10^3/uL (4.4-10.8)
[2023-10-15 14:01] LABS: ALT 29 U/L (16-63); AST 17 U/L (15-37); Albumin 3.7 g/dL (3.4-5.0); Alkaline Phosphatase 87 U/L (46-116); Anion Gap 9.7 mmol/L (3-11); BUN 13 mg/dL (7-18); Bilirubin, Total 0.5 mg/dL (0.2-1.0); CO2 26.3 mmol/L (21.0-32.0); CREATININE 1.1 mg/dL (0.70-1.30); Calcium 8.5 mg/dL (8.5-10.1); Chloride 105 mmol/L (98-107); Estimated GFR 78.79 (mL/min/1.73m2); Glucose 138 mg/dL (74-106); Potassium 3.9 mmol/L (3.5-5.1); Sodium 141 mmol/L (136-145); Total Protein 7.5 g/dL (6.4-8.2)
[2023-10-15 21:47] LABS: CEA 0.9 ng/mL (See Note)
== END 2023-10-15 13:51 | disposition home or self-care (01) ==
LOC: LBO 13:50
PROVIDERS: PCP Family Medicine; Visit Provider Nurse Practitioner Family
DX: C18.2 Malignant neoplasm of ascending colon (principal)
CPT/HCPCS: 36415; 80053; 82378; 85025